=== PATIENT | female | born 1985 | race Caucasian/White ===

== ENCOUNTER 2022-04-28 11:51 | Outpatient (CLI) | payer BC, MEDICAID, SELFPAY ==
[2022-04-28 12:44] LABS: Hematocrit 38.2 % (37.0-47.0); Hemoglobin 12.7 g/dL (12.0-15.0); Mean Corpuscular HGB Conc 33.2 g/dl (32-36); Mean Corpuscular Hemoglobin 31.4 pg (26-34); Mean Corpuscular Volume 94.6 fl (80-100); Mean Platelet Volume 11.3 fl (7.4-10.4); Platelet Count Result 208 k/mm3 (150-375); Red Blood Count 4.04 M/mm3 (4.2-5.4); Red Cell Distribution Width 14.1 % (11.5-14.5); White Blood Count 12.6 K/mm3 (4.5-10.0)
[2022-04-28 13:33] LABS: HIV 1/2 Ab P24 Ag Result Negative (Negative)
[2022-04-30 08:13] LABS: Rapid Plasma Reagin Non-Reactive (NonReactive)
== END 2022-04-28 11:52 | disposition home or self-care (01) ==
LOC: ANHLAB 11:56
PROVIDERS: Visit Provider Obstetrics & Gynecology
DX: Z01.812 Encounter for preprocedural laboratory examination (principal)
CPT/HCPCS: 36415; 85027; 86592; 86703; 86850; 86900; 86901; G0432

== ENCOUNTER 2022-04-30 10:00 | Inpatient (IN) | payer BC, MEDICAID, SELFPAY ==
[2022-04-30] VITALS (56 sets, daily range): BP systolic 95–144; BP diastolic 59–104; PULSE 52–223; RESP 11–18; TEMP 36.3–36.8; O2SAT 94–100; BMI 42.3
--- NOTE | 2022-04-30 10:00 | LDADM ---
This patient, Mallory Jackson, was admitted to Labor/Delivery/Recovery 119 on 04/30/22 at 10:00. Plans for labor, pain management and were discussed with patient. Patient/family oriented to hospital policies and general routines including ID bracelet, bed and alarms, visiting hours, pain management, procedures, bathroom and other care routines, personal items, smoking policy, room service/diet and guest tray routines, security routines, and visiting hours. Patient/Family are encouraged to report perceived risks to care and to ask questions if they do not understand what they are told or what they should do. See OBIX for further documentation.
--- NOTE | 2022-04-30 10:05 | WPDANESEPPF ---
Anes - Initial Pre Proc Eval Procedure: Operation Date: 04/30/22 12:00 Proposed Procedures p Repeat Section with Bilateral Salpingectomy - Mayra Sharp MD Date/Time: 04/30/22 10:05 Surgeon: Mayra Sharp MD Pre Op Diagnosis: C/S Patient Data Age: 37 Gender: F Height: Weight: Allergies Allergy/AdvReac Type Severity Reaction Status Date / Time No Known Allergies Allergy Verified 04/06/22 13:45 Home Medications Medication Instructions Recorded Confirmed Type B Complex-Vitamin B12 1 tab-cap PO DAILY 04/06/22 04/06/22 History aspirin 81 mg tablet 81 mg PO DAILY 04/06/22 04/06/22 History doxylamine succinate 25 mg tablet 25 mg PO DAILY 04/06/22 04/06/22 History (Unisom (doxylamine)) vits no.126-ferrous fum 1 tablet PO DAILY 04/06/22 04/06/22 History 28 mg iron-folic acid 800 mcg tablet (Classic ) pyridoxine (vitamin B6) 25 mg 25 mg PO DAILY 04/06/22 04/06/22 History tablet Patient hx anesthesia problems: none Family hx anesthesia problems: none Results Review: All pre-operative results and documents have been reviewed as part of the pre-operative evaluation. [facility] Family History Family History (Updated 04/06/22 @ 13:47 by Maida Agee RN) Grandparent Diabetes mellitus Social History Social History Smoking status: Former smoker Tobacco type: cigarettes Alcohol intake: current Substance use: never Lack of Transportation: No Lack of Food: Never True Current Housing: I Have Housing Concerned About Future Housing: No Difficulty Paying Gas/Electric Bills: No Difficulty Paying for Meds: No Currently Unemployed: No Education: Bachelor's Degree Difficulty w/ Childcare or Family Care: No Spiritual care concerns: No Anes - Eval Final PreProcedure Day of Procedure 04/30/22 10:05 Patient weight: obese Heart: regular rate and rhythm Lungs: clear to auscultation and normal air movement Airway: Mallampati scale class II Neurological: alert and oriented Last oral intake: >/= 8 hours ASA classification: II Emergent: no Anesthetic plan: proceed Anesthesia type and monitoring: regional spinal Results Review: All pre-operative results and documents have been reviewed as part of the pre-operative evaluation. Informed Consent: The patient's anesthetic plan and its attendant risks and benefits were discussed with the patient/family/POA. Questions were solicited and answers provided to the satisfaction of the patient/family/POA.
[2022-04-30] MEDS: LACTATED RINGERS 1,000 ML 999 ML IV CONT (10:42)
[2022-04-30] MEDS: LACTATED RINGERS 1,000 ML 125 ML IV CONT (11:34)
--- NOTE | 2022-04-30 12:11 | PM.IMHP ---
H&P: HPI History of Present Illness Date/Time: 04/30/22 12:11 Chief Complaint: R Cs with salpingectomy Narrative: Mallory is a 37yo at 38.0 with di/di twins here for R CS and salpingectomy. Other than twins, only complicated by tobacco use, AMA, and COVID during . Babies V/BR last US. Review of Systems Review of Systems: All systems reviewed & are unremarkable except as noted in HPI and below PMFSH Family History Family History (Updated 04/06/22 @ 13:47 by Maida Agee RN) Grandparent Diabetes mellitus Social History Social History Smoking status: Former smoker Tobacco type: cigarettes Alcohol intake: current Substance use: never Lack of Transportation: No Lack of Food: Never True Current Housing: I Have Housing Concerned About Future Housing: No Difficulty Paying Gas/Electric Bills: No Difficulty Paying for Meds: No Currently Unemployed: No Education: Bachelor's Degree Difficulty w/ Childcare or Family Care: No Spiritual care concerns: No Meds Home Medications and Allergies Home Medications Medication Instructions Recorded Confirmed Type B Complex-Vitamin B12 1 tab-cap PO DAILY 04/06/22 04/06/22 History aspirin 81 mg tablet 81 mg PO DAILY 04/06/22 04/06/22 History doxylamine succinate 25 mg tablet 25 mg PO DAILY 04/06/22 04/06/22 History (Unisom (doxylamine)) vits no.126-ferrous fum 1 tablet PO DAILY 04/06/22 04/06/22 History 28 mg iron-folic acid 800 mcg tablet (Classic ) pyridoxine (vitamin B6) 25 mg 25 mg PO DAILY 04/06/22 04/06/22 History tablet Allergies Allergy/AdvReac Type Severity Reaction Status Date / Time No Known Allergies Allergy Verified 04/06/22 13:45 Vital Signs Vital Signs - 24 hr 04/30/22 10:25 04/30/22 10:31 04/30/22 10:46 Pulse Rate 108 H 100 100 Blood Pressure 122/67 123/82 131/84 Oxygen Delivery 04/30/22 11:01 04/30/22 11:16 04/30/22 11:31 Pulse Rate 94 92 94 Blood Pressure 135/83 128/77 125/69 Oxygen Delivery 04/30/22 11:46 04/30/22 12:01 04/30/22 10:34 Pulse Rate 93 83 Blood Pressure 115/93 H 95/80 L Oxygen Delivery Room Air Exam Const: General: no acute distress Resp: Effort & Inspection: normal respiratory effort Auscultation: clear to auscultation bilaterally Cardio: Rate: regular rate Rhythm: regular rhythm GI: GI Palp: Yes Soft to palpation Extrem: General: normal to inspection Assessment and Plan Assessment and plan (1) Dichorionic diamniotic twin gestation: Code(s): O30.049 - Twin , dichorionic/diamniotic, unspecified trimester Status: Acute Plan Discussed RBA and consented for R CS with bilateral salpingectomy for sterilization. Questions answered, will proceed.
--- NOTE | 2022-04-30 12:14 | WPDHPUPDATE1 ---
History and Physical Update Update Date/Time: 04/30/22 12:14 History and Physical has been reviewed, including an updated exam of the patient. There are NO changes in the patient's condition. Risks, benefits, and alternatives have been discussed and questions answered. Patient agrees to proceed with procedure.
[2022-04-30] MEDS: ceFAZolin 2 GM/D5W 50 ML 2 GM/50 ML BAG IVPB (12:18)
--- NOTE | 2022-04-30 13:45 | PM.OBPRVD ---
OB - Delivery Note Procedure Delivery date: 04/30/22 Procedure: Procedures Operation Date: 04/30/22 12:00 <No data on this case meets the specified criteria> Repeat low transverse section and bilateral salpingectomy Events: Multiple Gestation and Previous Delivery Route of delivery: Specimen: Yes (placenta) Quantitative Blood Loss (ml): 920 Anesthesia type: Spinal Disposition: Floor Complications: none Narrative: The patient was taken to the OR and received spinal anesthesia. She was placed in dorsal supine position with left lateral tilt. SCDs and castro were placed. The babies were placed back on the monitor after the spinal and Baby A had prolonged deceleration into the 90s and 100s for a few minutes following hypotension with the spinal. FHT were 110 and 120 for A and B repectively prior to prep. She was prepped and draped in the normal sterile fashion. A Pfannensteil skin incision was made and carried through to the underlying layer of fascia. The fascia was incised in the midline and then extended laterally using Thapa scissors. The muscles were in the midline and the peritoneum was entered bluntly. The peritoneal incision was extended inferiorly and superiorly with care to avoid the bladder. The bladder blade was then inserted, the vesicouterine peritoneum was grasped, incised with Metzenbaum scissors, and a bladder flap created. The bladder blade was reinserted. A low transverse uterine incision was made with a scalpel and extended bluntly. AROM of Baby A was performed and fluid was noted to be clear. The head was delivered, followed by the remainder of the baby. The baby's oropharynx was suctioned and the cord was clamped and cut and the was handed off. Cord blood was obtained and the placenta was then removed manually. Baby B was delivered after AROM of clear fluid. He was delivered in breech presentation without difficulty. Cord was clamped and cut and he was handed off. The uterus was exteriorized. A moist lap sponge was used to curette the endometrium. The uterine incision was then closed with one layer of 0-Vicryl in a running, locking fashion. Good hemostasis was noted. I then turned attention to the tubes. Using the Ligasure, the right tube was removed by sequentially clamping, cauterizing, and cutting the tube free from the cornua and the broad ligament. Similarly, the left tube was removed. The posterior cul de sac was irrigated with normal saline and cleared of all clot and debris. The uterus was returned to the abdomen. With the return to the abdomen, the left cornual region began to bleed and was made hemostatic with Ligasure and a running suture. Both lateral gutters were then irrigated. The rectus muscles were inspected and found to be hemostatic. The fascia was reapproximated using 0-Vicryl in running fashion. The subcutaneous tissue was irrigated with normal saline and made hemostatic with Bovie electrocautery. The skin was then closed with reabsorbable dc. Steri strips and a bandage were applied. The uterus was evacuated. The patient tolerated the procedure very well. All counts were correct. She was taken to the recovery room in good condition. [place] Baby Date of : 04/30/22 Time of : 12:50 Weeks of gestation at delivery: 38 Infant gender: Female Weight (pounds): 6 Weight (ounces): 5 presentation: vertex Placenta delivery description: Manual Removal Cord Vessel Description: 3 Vessels and Clamped/Cut Narrative: Apgars pending per nursery Twins 2: Date of : 04/30/22 Time of : 12:51 Weeks of gestation at delivery: 38 gender: Male Weight (pounds): 6 Weight (ounces): 12 presentation: breech Placental delivery description: Manual Removal Cord Vessel Description: 3 Vessels and Clamped/Cut Narrative: Apgars pending per n
[2022-04-30] MEDS: OXYTOCIN 30 UNITS/NS 500 ML 30 UNITS/500 ML BAG 125 UNITS IV CONT (15:36)
--- NOTE | 2022-04-30 16:27 | PC.NURSE ---
Patient transferred to post room #282 via stretcher. Support person present. Oriented to unit, room, information board, rooming in, admission packet and security measures. Patient verbalizes understanding.
[2022-04-30] MEDS: DEXTROSE 5%/0.45% SOD CHL 1,000 ML 125 ML IV CONT (20:26)
[2022-05-01 00:06] VITALS: BP 112/61; PULSE 75; RESP 18; TEMP 36.8; O2SAT 97
[2022-05-01 04:34] VITALS: BP 102/57; PULSE 83; RESP 16; TEMP 36.7; O2SAT 96
[2022-05-01 05:12] LABS: Basophils Absolute Auto 0.1 K/mm3 (0.0-0.1); Basophils Percent Auto 0.3 % (0.2-1.2); Eosinophils Absolute Auto 0.1 K/mm3 (0-0.3); Eosinophils Percent Auto 0.6 % (0-4.4); Hematocrit 33.6 % (37.0-47.0); Hemoglobin 10.8 g/dL (12.0-15.0); Immature Granulocyte Absolute 0.19 K/mm3 (0.00-0.031); Immature Granulocyte Percent A 1.3 % (0-0.5); Lymphocytes Absolute Auto 1.47 K/mm3 (0.9-3.2); Mean Corpuscular HGB Conc 32.1 g/dl (32-36); Mean Corpuscular Hemoglobin 31.6 pg (26-34); Mean Corpuscular Volume 98.2 fl (80-100); Mean Platelet Volume 11.4 fl (7.4-10.4); Monocytes Percent Auto 6.4 % (2.6-8.5); Neutrophils Percent Auto 81.4 % (45.5-73.1); Platelet Count Result 182 k/mm3 (150-375); Red Blood Count 3.42 M/mm3 (4.2-5.4); White Blood Count 14.8 K/mm3 (4.5-10.0)
--- NOTE | 2022-05-01 07:45 | PM.OBPNVD ---
OB - PN: Subj Subjective Date/time seen: 05/01/22 07:45 Patient comments: no complaints and pain well controlled baby status: nursing well and NICU [place] feeding status: exclusively breast feeding Narrative: POD 1 from primary CS. Doing well. Normal lochia. Eating, ambulating, castro out. Both babies doing well. OB - PN: Obj Data Labs 05/01/22 04:30 Labs: Laboratory Results - last 24 hr 05/01/22 04:30 WBC 14.8 H RBC 3.42 L Hgb 10.8 L Hct 33.6 L MCV 98.2 MCH 31.6 MCHC 32.1 RDW 14.0 Plt Count 182 MPV 11.4 H Immature Gran % (Auto) 1.3 H Neut % (Auto) 81.4 H Lymph % (Auto) 10.0 L [place] % (Auto) 6.4 Eos % (Auto) 0.6 Baso % (Auto) 0.3 Lymph # (Auto) 1.47 [place] # (Auto) 1.0 H Eos # (Auto) 0.1 Baso # (Auto) 0.1 Abs Immat Gran (auto) 0.19 H Absolute Neuts (auto) 12.0 H Absolute Nucleated RBC 0.0 Nucleated RBC % 0.0 OB - PN A/P Plan day: 1 Plan: routine care Comments: circ baby boy today. consented. Time Spent With Patient Time: Total time spent is greater than 50% in coordination of care (as documented) at patient's floor/unit and/or counseling patient: Exam Narrative: NAD abdomen soft, appropriately tender, incision bandaged Extremities nontender with 1+ edema
[2022-05-01 08:00] VITALS: BP 102/75; PULSE 72; RESP 16; TEMP 36.7; O2SAT 100
--- NOTE | 2022-05-01 08:21 | P.PNOB_ITS ---
OB - PN: Subj Subjective Date/time seen: 05/01/22 08:21 Patient comments: no complaints and pain well controlled baby status: doing well and nursing well [place] feeding status: exclusively breast feeding OB - PN: Obj Data Labs 05/01/22 04:30 Labs: Laboratory Results - last 24 hr 05/01/22 04:30 WBC 14.8 H RBC 3.42 L Hgb 10.8 L Hct 33.6 L MCV 98.2 MCH 31.6 MCHC 32.1 RDW 14.0 Plt Count 182 MPV 11.4 H Immature Gran % (Auto) 1.3 H Neut % (Auto) 81.4 H Lymph % (Auto) 10.0 L [place] % (Auto) 6.4 Eos % (Auto) 0.6 Baso % (Auto) 0.3 Lymph # (Auto) 1.47 [place] # (Auto) 1.0 H Eos # (Auto) 0.1 Baso # (Auto) 0.1 Abs Immat Gran (auto) 0.19 H Absolute Neuts (auto) 12.0 H Absolute Nucleated RBC 0.0 Nucleated RBC % 0.0 OB - PN A/P Plan day: 2 Plan: routine care Comments: home tomorrow Time Spent With Patient Time: Total time spent is greater than 50% in coordination of care (as documented) at patient's floor/unit and/or counseling patient: Exam Narrative: NAD abdomen soft, appropriately tender, incision CDI Extremities nontender with 1+ edema
[2022-05-01] MEDS: MULTIVIT/MIN/PREN/FOL AC/IRON TABLET 1 TAB PO (09:25)
[2022-05-01] MEDS: IBUPROFEN 600 MG TABLET PO ×2 (09:25→17:19)
[2022-05-01] MEDS: DOCUSATE SODIUM 100 MG CAPSULE PO ×2 (09:25→17:19)
[2022-05-01] MEDS: HYDROcodone/acetaminophen (*CRX) 5-325 MG TABLET 1 TAB PO ×2 (09:28→17:19)
[2022-05-01 11:41] VITALS: BP 101/65; PULSE 87; RESP 16; TEMP 36.9; O2SAT 98
--- NOTE | 2022-05-01 13:25 | WPDANLDPN2 ---
Anes-Prog Note L&D Date/Time: 05/01/22 13:25 Neuro status: Neuro function grossly intact. Vital Signs: Last Vital Signs Temp 36.9 C 05/01/22 11:41 Pulse 87 05/01/22 11:41 Resp 16 05/01/22 11:41 BP 101/65 05/01/22 11:41 Pulse Ox 98 05/01/22 11:41 O2 Del Method Room Air 04/30/22 16:00 Pain score (VAS): 0 I/O: Intake & Output 04/30/22 05/01/22 05/01/22 23:59 07:59 15:59 Intake Total 740 2400 300 Output Total 53 1950 Balance 687 450 300 Patient feedback: Patient satisfied with anesthetic care.
--- NOTE | 2022-05-01 13:25 | WPDANLDNPN2 ---
Anes-Prog Note L&D-Neuraxial Date/Time: 05/01/22 13:25 Patient feedback: Patient satisfied with post-operative pain management.
--- NOTE | 2022-05-01 14:51 | PC.NURSE ---
[id number] Introductions were made, then consulted with patient to assess needs related to . Mother led the conversation with her?plans to feed?her infant and the?experience so far including, the history (with this L3 mother) is 2 weeks of with her first child. Mother is the twins and states she is independently latching them with no pain. The plan for this mother is to use combination feeding with formula supplementation. Reviewed with mother how to protect, build and maintain her milk supply. Resources provided for inpatient and outpatient services with the feeding sheet, mom/baby guide and business card. Mother voiced understanding of information, declines consult at this time and that she can call if she requests assistance.
[2022-05-01 19:48] VITALS: BP 121/78; PULSE 85; RESP 18; TEMP 36.7; O2SAT 99
[2022-05-02] MEDS: IBUPROFEN 600 MG TABLET PO ×3 (00:56→14:58)
[2022-05-02] MEDS: HYDROcodone/acetaminophen (*CRX) 10-325 MG TABLET 1 TAB PO ×2 (00:56→14:58)
[2022-05-02 07:25] VITALS: BP 120/74; PULSE 79; RESP 16; TEMP 36.9; O2SAT 98
[2022-05-02] MEDS: MULTIVIT/MIN/PREN/FOL AC/IRON TABLET 1 TAB PO (08:10)
[2022-05-02] MEDS: DOCUSATE SODIUM 100 MG CAPSULE PO (08:10)
[2022-05-02] MEDS: HYDROcodone/acetaminophen (*CRX) 5-325 MG TABLET 1 TAB PO (08:10)
[2022-05-02] MEDS: SIMETHICONE 80 MG TAB.CHEW PO ×2 (08:11→14:59)
--- NOTE | 2022-05-02 08:51 | PC.NURSE ---
Addendum entered by Alejandro Moon RN 05/02/22 08:52: actual time of note was 0735 Original Note: PT introductions made and plan of care discussed per post op c section, pain management, breast feeding, daily care activities and pending discharge to home. PT and spouse both recipients of such instructions and no barriers to learning identified at this time. PT received such instructions this shift per one to one discussion, mom baby care guide and demonstrations. PT verbalized understanding of such care.
[2022-05-02 14:00] VITALS: BP 120/74; PULSE 79; RESP 16; TEMP 36.9; O2SAT 98
--- NOTE | 2022-05-02 14:11 | PC.NURSE ---
[id number] Purposefully rounded to assess /milk production needs. Mother states she is independently without pain and supplementing infants with formula. Reviewed milk production with stimulating with or pumping 8-12 times in 24 hours with 1-2 times being at night. Discussed the history of low milk production with her first with the practice of lasting 2 weeks. We reviewed how to improve the milk supply with the milk shake, hand expression, gentle compression with and pumping if the infants do not latch. Mother voices confidence in her plan and that the education was understood.
--- NOTE | 2022-05-02 16:00 | PC.NURSE ---
PT received discharge instructions per protocol and verbalized understanding of such care.
--- NOTE | 2022-05-02 16:40 | PC.NURSE ---
PT discharged to home ambulatory accompanied by significant other and infants and taken to waiting car. follow up appts confirmed
[2022-05-04 09:42] VITALS: BP 124/74; PULSE 89; RESP 20; TEMP 37.7; O2SAT 99
--- NOTE | 2022-05-05 09:36 | PM.OBDSVD ---
DS: Admitting Diagnosis Discharge Date 05/02/22 Admitting Diagnosis twin at 38w DS: Discharge Diagnosis Discharge Diagnosis (1) delivery delivered: Code(s): O82 - Encounter for delivery without indication Status: Acute (2) Dichorionic diamniotic twin gestation: Code(s): O30.049 - Twin , dichorionic/diamniotic, unspecified trimester Status: Acute OB - DS: Summary Hospital Course Hospital Course: Mallory was admitted for delivery of di/di twins at 38w. She proceeded to have an uncomplicated delivery and course. She also had a bilateral salpingectomy for sterilization. She was discharged home on POD 2. OB Procedures : NST and Ultrasound OB Procedures Intrapartum: and Tubal ligation OB Procedures: : None Peripartum Data Infant Delivery Method: Section Procedures: Procedures Operation Date: 04/30/22 12:00 Actual Procedure Side Surgeon p Repeat Section with Bilateral Salpingectomy Mayra Sharp MD complications: none Status at Discharge Functional status at discharge: independent ambulation Time Spent with Patient Time attestation: Total time spent providing and/or coordinating discharge services: Exam Narrative: NAD abdomen soft, appropriately tender, incision CDI DS: Data Data Completed and Pending Completed studies during hospitalization: Pending at discharge 04/30/22 14:10 Surgical [PTH] Routine Discharge Plan Discharge Attending physician on discharge: Mayra Sharp Consulting providers: Krunal Vang ; Monica Flanagan Discharging Clinician: Mayra Sharp Anticipated Discharge Date/Time: 05/02/22 14:09 Patient Disposition: Home, Self-Care Activity: may drive after 2 weeks and pelvic rest Diet: regular Discharge Instructions: Education: Mom and Baby Guide Given to: Mother Follow-Up: Call your delivering provider's office for an appointment to be seen in: 1 Week Mom and baby [facility] the follow-up appointment. Appointment Date/Time: May 04, 2022 at 9:00 am What to expect at your follow-up visit: Blood Pressure Check Call [phone] if you are unable to keep your appointment time. BREAST CARE: * Wear a snug supportive bra. * For engorgement discomfort: Breast Feeding: * Apply warm moist washcloths * Express milk as needed to relieve engorgement * Wear loose clothing Bottle Feeding: * May apply ice packs * For sore nipples: * Identify correct latch-on * Apply warm moist washcloths before and after nursing * Air dry nipples after nursing * May apply Lansinoh cream to nipples ABDOMINAL INCISION: (if applicable) * Allow incision to air dry * Do NOT use lotions for powders on your incision * When showering, allow soap and water to run over the incision, but do not wash incision PERINEAL CARE: * Until bleeding stops, use your eleazar bottle after urinating * Change your pad frequently throughout the day * No tub baths until seen by your physician - You may shower ACTIVITY: * Rest as much as possible. * Do not exercise or lift anything heavier than your baby (such as laundry or other children.) * Avoid stairs or driving as much as possible. * Do not put anything into the vagina. No douching, tampons, or sexual activity until seen by physician. NOTIFY PHYSICIAN IF YOU HAVE ANY QUESTIONS OR IF ANY OF THE FOLLOWING SYMPTOMS OCCUR: * If your incision becomes red, swollen, or more painful than what you have experienced in the hospital. * If your vaginal bleeding becomes foul smelling. * If your vaginal bleeding becomes more heavy than a period or if your bleeding changes from pink to bright red. However, you may pass an occasional walnut-sized clot once or twice for the
== END 2022-05-02 16:40 | disposition home or self-care (01) | DRG 785 ==
LOC: ANHLDR 10:07 → ANHOB2 16:38
PROVIDERS: Admitting Provider Obstetrics & Gynecology; Visit Provider Obstetrics & Gynecology
PROC: 10D00Z1 Extraction of Products of Conception, Low, Open Approach (ICD-10-PCS; CPT 59514; principal; 2022-04-30 12:00)
DX: O34.211 Maternal care for low transverse scar from previous cesarean delivery (principal); O30.043 Twin pregnancy, dichorionic/diamniotic, third trimester; Z37.2 Twins, both liveborn; Z3A.38 38 weeks gestation of pregnancy; O99.334 Smoking (tobacco) complicating childbirth; F17.210 Nicotine dependence, cigarettes, uncomplicated; Z30.2 Encounter for sterilization; O32.1XX2 Maternal care for breech presentation, fetus 2
CPT/HCPCS: 36415; 85025; 88302; A9270; J0131; J0690; J1885; J2274; J2405; J2590; J7120